=== PATIENT | female | born 1955 | race Caucasian/White ===

== ENCOUNTER 2020-05-18 07:26 | Outpatient (CLI) | payer MEDICARE, OTHER ==
[2020-05-18 14:15] LABS: Hemoglobin 14.1 g/dL (12.0-16.0); Mean Corpuscular HGB CONC 32.5 g/dL (32.0-36.0); Mean Corpuscular Hemoglobin 27.8 pg (27.0-31.0); Mean Corpuscular Volume 85.6 fL (78.0-98.0); Mean Platelet Volume 8.9 fL (7.4-10.4); Platelet Count 227 thou/uL (130-400); RBC Distribution Width 14.2 % (11.5-14.5); Red Blood Cell (RBC) Count 5.08 mill/uL (4.20-5.40)
[2020-05-18 14:20] LABS: INR-International Normal Ratio 0.9; PTT 26.4 sec (22.9-36.1); Prothrombin Time 12.2 sec (12.0-14.7)
[2020-05-19 11:55] LABS: SARS-CoV-2 MS2 Positive; SARS-CoV-2 N Gene Negative; SARS-CoV-2 S Gene Negative; SARS-CoV-2 by NAA Not Detected (NotDetected); SARS-CoV-2 orf1ab Negative
== END 2020-05-18 07:27 | disposition home or self-care (01) ==
LOC: LABBT 07:26
PROVIDERS: ATTEND Neurological Surgery
DX: Z01.812 Encounter for preprocedural laboratory examination (principal); Z20.828 Contact with and (suspected) exposure to other viral communicable diseases; G52.8 Disorders of other specified cranial nerves
CPT/HCPCS: 85027; 85610; 85730; U0003; 87635

== ENCOUNTER 2020-05-18 12:00 | Inpatient (IN) | payer MEDICARE, OTHER ==
[2020-05-19 14:17] VITALS: BMI 27.9
[2020-05-21] MEDS ORDERED: Heparin 1,000 UNITS/ML VIAL ONE (08:14)
[2020-05-21] MEDS ORDERED: Glycopyrrolate 0.2 MG/ML 5 ML SYRINGE ONE (10:53)
[2020-05-21] MEDS ORDERED: Rocuronium Bromide 10 MG/ML (10ML VIAL) ONE (10:53)
[2020-05-21] MEDS ORDERED: Dexamethasone 20 MG/5 ML VIAL ONE (10:53)
[2020-05-21] MEDS ORDERED: Ondansetron PF 4 MG/2 ML Vial ONE (10:53)
[2020-05-21] MEDS ORDERED: PROPOFOL 200 MG/20 ML VIAL ONE (10:53)
[2020-05-21] MEDS ORDERED: EPHEDRINE 25 MG/5 ML SYRINGE ONE (10:53)
[2020-05-21] MEDS ORDERED: PHENYLEPHRINE-NS 100 MCG/ML 10 ML SYRINGE ONE (10:53)
[2020-05-21] MEDS ORDERED: Lidocaine 1% PF 5 ML VIAL ONE (10:53)
[2020-05-21] MEDS ORDERED: Lidocaine 0.5%/Epinephrine 1:200,000 50 ml Vial ONE (13:12)
[2020-05-21] MEDS ORDERED: Fentanyl 100 MCG/2 ML VIAL ONE ×3 (13:54→17:47)
[2020-05-21] MEDS ORDERED: Gentamicin 80 MG/2 ML VIAL ONE (15:57)
[2020-05-21] MEDS ORDERED: Bacitracin Zinc Ointment 30 gm TUBE ONE (16:26)
[2020-05-21] MEDS ORDERED: diphenhydrAMINE 50 MG CAP PO PRN (16:37)
[2020-05-21] MEDS ORDERED: Promethazine 25 MG TAB PO PRN (16:37)
[2020-05-21] MEDS ORDERED: Promethazine HCl 25 MG/ML VIAL IM PRN (16:37)
[2020-05-21] MEDS ORDERED: Acetaminophen 325 MG TAB PO PRN (16:37)
[2020-05-21] MEDS ORDERED: Docusate 100 MG CAP PO PRN (16:37)
[2020-05-21] MEDS ORDERED: diphenhydrAMINE 50 MG/ML VIAL IVP PRN (16:37)
[2020-05-21] MEDS ORDERED: Acetaminophen 650 MG Suppository PR PRN (16:37)
[2020-05-21] MEDS ORDERED: Promethazine HCl 12.5 MG SUPP PR PRN (16:37)
[2020-05-21] MEDS ORDERED: Gabapentin 300 MG CAP PO PRN (16:41)
[2020-05-21] MEDS ORDERED: Ondansetron HCl/PF 4 MG/2 ML Vial IVP PRN (17:02)
[2020-05-21] MEDS ORDERED: Metoprolol Tartrate 5 MG/5 ML VIAL ONE (17:47)
[2020-05-21] MEDS: Morphine 2 MG/ML VIAL SLOW IVP PRN ×2 (20:08→22:08)
[2020-05-21] MEDS: Sodium Chloride 0.9% 1,000 ML IV SCH (20:09)
[2020-05-21] MEDS: CEFAZOLIN 2 GM in Premix Bag 1 BAG IVPB SCH (20:10)
[2020-05-21] MEDS: Ondansetron PF 4 MG/2 ML Vial IVP PRN (20:10)
[2020-05-21] MEDS: HYDROcodone/Acetaminophen 7.5/325 mg Tablet PO PRN (22:08)
--- NOTE | 2020-05-21 23:20 | OP ---
DATE OF PROCEDURE: 05/21/2020 CO-SURGEON: Jarek Chandler MD of Plastic Surgery. INDICATION: Treat infection, prevent neurological deterioration. PREOPERATIVE DIAGNOSIS: Prior cranioplasty, erosion of cranioplasty titanium mesh through the skin, exposure and colonization. POSTOPERATIVE DIAGNOSIS: Prior cranioplasty, erosion of cranioplasty titanium mesh through the skin, exposure and colonization. OPERATIVE PROCEDURE: Reopening cranial incision, debridement of wound, removal of cranioplasty and scalp advancement closure with office administrative assistant, intraoperative tissue expansion. PREOPERATIVE MEDICATION: Ancef 2 g IV. DRAINS NUMBER: Zero. DRAIN TYPE: None. DESCRIPTION OF PROCEDURE: The patient was brought to the operating room. General endotracheal anesthesia was induced. The patient was placed supine on the operating table with her left shoulder bumped and the head turned to the right and supported by a gel-filled donut-shaped headrest. Hair was removed with electric clippers. We could visualize the numerous incisions on the patient's scalp. We planned to open the curvilinear incision shaped as inverted horseshoe over the ear, because this best represented the edges of the prior cranioplasty. The erosion of mesh through this scalp was just 1 cm superior to that incision line. The scalp was sterilely prepped and draped. We opened the incision with a 10 blade knife. We carefully dissected down to the skull layer and then began elevating scar tissue in the layer of what it used to be the periosteum off the cranioplasty and off the [place] skull. We dissected circumferentially around the cranioplasty and identified 9 screws. These were removed. Three screws were stripped or filled with bone cement and were unable to be removed with a screwdriver. Those were drilled out with a high-speed drill. Once the edges of the cranioplasty were free, we began to peel it off the epidural space. Cranioplasty moved easily. 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 We left this attached to the brain. We dissected it off the edges of the bone inferiorly as it led towards the temporalis muscle. There seemed to be more tissue here. In case that one of her operations in the past involved a vascularized temporalis flap. We did not cut the attachments towards the temporalis muscle unless we devascularize what could be a vascular layer. We took multiple cultures both with swabs and we sent the screws themselves for culture as well as the entire cranioplasty flap. We irrigated with bacitracin irrigation. We then inspected the skin hole created by the titanium mesh. This was about 1 cm outside and superior to the incision we opened. We elected to mobilize the scalp intraoperatively to get it to close and to incorporate the skin defect into the attention provided by closing sutures, so that had a chance to heal in the coming weeks to months. A 30 mL Warren catheter was brought in the field, this was tunneled under the scalp and then inflated with 40 mL of fluid to allow for some intraoperative tissue expansion. This was done as we debrided more granulation tissue from around the wound. We then deflated the catheter, removed it and found that the scalp had some more give. A [place] 3 dissector was instrumental in dissecting past the horizon of the skull under the scalp as well as a [place] 1 dissector around the more proximal edges. This dissection and the tissue expansion allowed us to close the wound with vertical mattress sutures under very little tension. Prior to final closure, a paste of the vancomycin, gentamicin was left in the skull defect and a closure was completed with the planned vertical mattress sutures. Sterile dressings were applied. This was a clean case, no contamination. Job ID: [id number]
--- NOTE | 2020-05-22 00:33 | OP ---
DATE OF PROCEDURE: 05/21/2020 PREOPERATIVE DIAGNOSIS: Infected cranioplasty. POSTOPERATIVE DIAGNOSIS: Infected cranioplasty. PROCEDURES: 1. Removal of infected cranioplasty by Dr. Young. 2. Complex closure of the scalp (20 cm) (49593, [id number] x3). DESCRIPTION OF PROCEDURE: Following induction of adequate anesthesia, the patient was prepped and draped in the usual sterile fashion in the lateral position. Please see Dr. Young's note for scalp incision as well as elevation of the scalp in order to perform the cranioplasty hardware removal. Due to retraction of the temporoparietal scalp flap, primary closure could not be reachieved without undue tension. This was exacerbated by a small open area of the scalp from the hardware. In order to achieve a proper tension on the closure, the scalp was further elevated medially as well as anteriorly and posteriorly. Medially, the elevation was approximately 8 cm. This was done in a subperiosteal plane. Intraoperative tissue expansion was then performed with the Warren catheter balloons being expanded allowing the scalp to stretch. This mobilization and stretching allowed for the closure to be performed. This was then closed using 2-0 nylon suture followed by 5-0 fast gut suture for the skin edges. Vancomycin and gentamicin paste were placed underneath the flap prior to closure and copious irrigation. The patient tolerated the procedure well. Please see Dr. Young's note for further detail. Job ID: [id number]
[2020-05-22] MEDS: CEFAZOLIN 2 GM in Premix Bag 1 BAG IVPB SCH ×3 (04:32→21:17)
[2020-05-22 05:34] LABS: #Lymphocytes 0.9 thou/uL (1.20-3.40); #Monocytes 0.5 thou/uL (0.11-0.59); #Neutrophils 7.5 thou/uL (1.40-6.50); %Basophils 0.2 % (0.0-1.0); %Eosinophils 0.1 % (0.0-10.0); %Lymphocytes 10.1 % (21.0-51.0); %Monocytes 5.1 % (0.0-10.0); %Neutrophils 84.4 % (42.0-75.0); Hemoglobin 13.3 g/dL (12.0-16.0); Mean Corpuscular HGB CONC 32.2 g/dL (32.0-36.0); Mean Corpuscular Hemoglobin 27.4 pg (27.0-31.0); Mean Corpuscular Volume 85.2 fL (78.0-98.0); Mean Platelet Volume 9.3 fL (7.4-10.4); Platelet Count 210 thou/uL (130-400); RBC Distribution Width 14.1 % (11.5-14.5); Red Blood Cell (RBC) Count 4.86 mill/uL (4.20-5.40); White Blood Cell (WBC) Count 8.8 thou/uL (4.8-10.8)
[2020-05-22] MEDS: Morphine 2 MG/ML VIAL SLOW IVP PRN (06:08)
[2020-05-22] MEDS: HYDROcodone/Acetaminophen 7.5/325 mg Tablet PO PRN ×2 (06:08→21:20)
[2020-05-22] MEDS: Sodium Chloride 0.9% 1,000 ML IV SCH ×2 (06:17→18:13)
[2020-05-22] MEDS: Ondansetron PF 4 MG/2 ML Vial IVP PRN (07:58)
[2020-05-22] MEDS: Famotidine 20 MG TAB PO SCH (07:58)
--- NOTE | 2020-05-22 11:27 | PRG ---
DATE OF SERVICE: Ms. Walker is doing well neurologically and clinically postop day #1 following removal of bone flap. We will get her helmet, antibiotics have been finalized and then she can go home. Job ID: [id number]
[2020-05-22] MEDS: Topiramate 25 MG TAB PO PRN (15:45)
[2020-05-22] MEDS ORDERED: Vancomycin HCl 1.25 GM in Sodium Chloride 0.9% 250 ML 250 ML IVPB SCH (17:15)
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
[2020-05-22 17:48] LABS: ALT (SGPT) 36 U/L (8-55); AST (SGOT) 43 U/L (5-34); Albumin 3.6 g/dL (3.4-4.8); Alkaline Phosphatase 82 U/L (40-110); Anion Gap 11 mmol/L (10-20); BUN (Urea Nitrogen) 18 mg/dL (9.8-20.1); Bilirubin, Total 0.2 mg/dL (0.2-1.2); Calc. Creatinine Clearance 88 mL/min (70-130); Calcium 8.5 mg/dL (7.8-10.44); Carbon Dioxide 26 mmol/L (23-31); Chloride 108 mmol/L (98-107); Estimated GFR-MDRD 74; Globulin 2.3 g/dL (2.4-3.5); Glucose 120 mg/dL (80-115); Potassium 3.5 mmol/L (3.5-5.1); Protein, Total 5.9 g/dL (6.0-8.3); Sodium 141 mmol/L (136-145)
[2020-05-22] MEDS: Vancomycin HCl 1.25 GM in Sodium Chloride 0.9% 250 ML 250 ML IVPB SCH (18:01)
[2020-05-22 18:07] LABS: Hep C IgG Ab Non-Reactive (NonReactive); Hep C Index 0.25 S/CO (0-0.79)
[2020-05-22] MEDS ORDERED: Vancomycin HCl 1.25 GM in Sodium Chloride 0.9% 250 ML 300 ML IVPB SCH (21:00)
[2020-05-22] MEDS: Cefepime 2 GM in Sodium Chloride 0.9% 100 ML IVPB SCH (21:17)
--- NOTE | 2020-05-22 21:40 | PRG ---
DATE OF SERVICE: 05/22/2020 SUBJECTIVE: Ms. Walker is a very pleasant 64-year-old female, who is postoperative day #1 from removal of bone flap. She endorses a headache rated as 6/10 and some mild nausea, but overall states that she is doing well after her surgery. She does note some new numbness and tingling in the 1st through 3rd fingers of the left hand. She is moving all extremities without difficulty. She has not yet ambulated because she wishes to obtain a helmet prior to doing so. She denies any changes in vision or speech. Overall, she is very pleasant and in good spirits. She has remained afebrile throughout her hospital stay. Vital signs have been stable. Lowest blood pressure overnight was 106/55. White blood cell 8.8. Sodium 141. All other labs reviewed and there were no concerning abnormalities. The patient is awake, alert, and appropriate. Pupils are 3 mm; equal, round, and reactive to light. Extraocular movements are intact. Cranial nerves 2 through 12 are grossly intact. Neck is supple and patient demonstrates a good range of motion of the head. She demonstrates excellent strength throughout her upper and lower extremity myotomes bilaterally. Aside from subjective decreased sensation in the left 1st through 3rd fingers, the patient's sensation to light touch is intact throughout. Overall, the patient is neurologically stable. PLAN: A consult has been placed for [facility] to fit the patient for a helmet. Once obtained, she can begin to mobilize. When patient was seen this afternoon, she remained awaiting to be seen by Infectious Disease for finalization of antibiotic management. She will be stable for discharge home when she has been seen by Dr. Flowers. Please call for any neurologic changes or other concerns. Job ID: [id number]
[2020-05-23] MEDS: CEFAZOLIN 2 GM in Premix Bag 1 BAG IVPB SCH ×3 (05:49→20:19)
[2020-05-23] MEDS: Vancomycin HCl 1.25 GM in Sodium Chloride 0.9% 250 ML 250 ML IVPB SCH ×2 (05:49→17:20)
[2020-05-23] MEDS: HYDROcodone/Acetaminophen 7.5/325 mg Tablet PO PRN ×2 (05:58→17:19)
--- NOTE | 2020-05-23 08:57 | EKG ---
Test Reason : PREOP Blood Pressure : / mmHG Vent. Rate : 052 BPM Atrial Rate : 052 BPM P-R Int : 142 ms QRS Dur : 140 ms QT Int : 476 ms P-R-T Axes : 063 085 024 degrees QTc Int : 442 ms Sinus bradycardia Right bundle branch block Abnormal ECG No previous ECGs available Confirmed by DR. Wilfrido JACK ([id number]) on 05/23/2020 8:57:16 AM Referred By: ADAM Confirmed By:DR. Wilfrido JACK
[2020-05-23] MEDS: Sodium Chloride 0.9% 1,000 ML IV SCH ×2 (09:02→17:20)
[2020-05-23] MEDS: Famotidine 20 MG TAB PO SCH (09:03)
[2020-05-23] MEDS: Cefepime 2 GM in Sodium Chloride 0.9% 100 ML IVPB SCH ×2 (09:04→21:22)
[2020-05-23] MEDS: Topiramate 25 MG TAB PO PRN (12:49)
[2020-05-24 05:13] LABS: Vancomycin, Trough 15.6 ug/mL
[2020-05-24] MEDS: CEFAZOLIN 2 GM in Premix Bag 1 BAG IVPB SCH ×3 (05:15→20:11)
[2020-05-24] MEDS: HYDROcodone/Acetaminophen 7.5/325 mg Tablet PO PRN ×3 (05:18→17:51)
[2020-05-24] MEDS: Vancomycin HCl 1.25 GM in Sodium Chloride 0.9% 250 ML 250 ML IVPB SCH (05:49)
[2020-05-24] MEDS: Famotidine 20 MG TAB PO SCH (08:14)
[2020-05-24] MEDS: Cefepime 2 GM in Sodium Chloride 0.9% 100 ML IVPB SCH ×2 (08:41→21:44)
[2020-05-24] MEDS: Sodium Chloride 0.9% 1,000 ML IV SCH (13:00)
[2020-05-24] MEDS ORDERED: Iopamidol 300 61% 50 ML VIAL FS ONE (14:03)
--- NOTE | 2020-05-24 15:03 | SPC ---
Left upper extremity PICC placement sonographic guided HISTORY: Infection. Need for long-term antibiotics. FINDINGS: After explaining the procedure and answering all questions, left upper extremity was preppe d and draped in usual sterile fashion. Sterile technique, buffered local anesthesia, sonographic guidance, and a 22-gauge needle were used t o carefully access the left brachial vein. Guidewire would not pass beyond the left subclavian vein. Small amount of contrast was injected, showing occlusion of the left subclavian vein immediately infe rior to the medial margin of the clavicular metallic plate. There was collateralization of the flow into the neck. With a Koducoenstein catheter, the level of the occlusion was carefully probed for patenc y which was unable to be found. Access to the left brachial vein was eventually removed. Attention was then turned to the right arm. Sterile technique, buffered local anesthesia, sonographic guidance, and a 22-gauge needle were used to carefully access the right brachial vein. Standard technique was used to place the tip of a 5 [place] single lumen PICC so that the tip lies at the level of the cavoatrial junction. Catheter was flushed and secured externally. Patient tolerated the procedure well and was returned in unchanged condition. IMPRESSION : Right upper extremity PICC is ready for use. 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
[2020-05-24] MEDS: Vancomycin 1.5 GRAM/300 ML BAG 1.5 GM in Premix Bag 1 BAG IVPB SCH (17:44)
[2020-05-25] MEDS: Sodium Chloride 0.9% 1,000 ML IV SCH ×2 (01:00→13:47)
[2020-05-25] MEDS: CEFAZOLIN 2 GM in Premix Bag 1 BAG IVPB SCH ×2 (05:32→12:34)
[2020-05-25] MEDS: Vancomycin 1.5 GRAM/300 ML BAG 1.5 GM in Premix Bag 1 BAG IVPB SCH (06:18)
--- NOTE | 2020-05-25 06:53 | PRG ---
DATE OF SERVICE: 05/25/2020 I saw Prieto Walker in her room this morning. She is 4 days out from removal of cranioplasty and a PICC line was placed yesterday. Overnight, I do not see any fevers recorded among the vital signs. Neurologically, she is well. Ms. Walker is ready for discharge. Once home antibiotics are arranged, she can leave the hospital. Dr. Chandler's office will remove the sutures in 3 to 4 weeks. We will order CT scan with fine cuts to plan 3D printed cranioplasty and at the completion of antibiotic therapy, we will wait another month to six weeks to make sure that no infection returns before planning a return to the operating room. Job ID: [id number] MTDD
[2020-05-25] MEDS: HYDROcodone/Acetaminophen 7.5/325 mg Tablet PO PRN ×2 (06:59→17:20)
[2020-05-25] MEDS: Famotidine 20 MG TAB PO SCH (07:53)
[2020-05-25] MEDS: Cefepime 2 GM in Sodium Chloride 0.9% 100 ML IVPB SCH ×2 (09:28→17:06)
[2020-05-25 16:14] VITALS: BP 125/73; TEMP 98.6
[2020-05-25] MEDS ORDERED: Cefepime 2 GM in Sodium Chloride 0.9% 100 ML IVPB SCH (17:45)
[2020-05-26] MEDS ORDERED: Cefepime 2 GM in Sodium Chloride 0.9% 100 ML IVPB SCH (06:00)
[2020-05-26 13:39] LABS: Fungus Stain Final report (.)
--- NOTE | 2020-05-26 15:26 | DIS ---
DATE OF ADMISSION: 05/21/2020 DATE OF DISCHARGE: 05/25/2020 HOSPITAL COURSE: Ms. Walker is a 64-year-old female, who had a prior cranioplasty with erosion of the titanium mesh through the skin, exposure and colonization. The patient was brought to the operating room with co-surgeon, Dr. Chandler and reopen the cranial incision and debrided the wound and removal of the cranioplasty. The scalp advancement closure was done by plastic surgeon, Dr. Chandler. Following her surgery, she was transitioned to the med/surg floor, where her pain was well controlled with p.o. medications. She has been tolerating a regular diet and is voiding appropriately. She saw Infectious Disease and was placed on broad- spectrum antibiotic. She is otherwise doing well and ambulating easily in the hallways. She feels that she is ready to go home today. On exam, she is awake and alert, in no acute distress. She has free active range of motion of all extremities. No focal motor weakness. No reflex asymmetry. Her incision is clean, dry, and intact. We will plan to dismiss the patient to home today. I have discussed home care precautions with her. CONDITION ON DISCHARGE: The patient had no emergencies. Condition was stable for discharge. MEDICATIONS: Home going medications were reviewed. FOLLOWUP: Follow up arrangements made by our weatherization coordinator in the clinic and call to the patient. ACTIVITIES: Restrictions were reviewed in person. Wound care showers are acceptable. The patient should pat the incision dry, but not submerge under the surface of the body of water for 2 months. Job ID: [id number] [facility]
--- NOTE | 2020-05-27 08:08 | PQF ---
CLINICAL DOCUMENTATION CLARIFICATION FORM: Dear : Guy Young Date / Time: 05/27/20 0807 Please exercise your independent, professional judgment in responding to the clarification form. Clinical indicators are provided on the bottom of this form for your review Please check appropriate box(es): [ ] Excisional Debridement: Depth / layer: (deepest layer of debridement): [ ] Scalp Bone [ ] Brain tissue [ ] Non-excisional Debridement: Depth / layer: (deepest layer of debridement): [ ] Scalp Bone [ ] Brain [ ] Other procedure diagnosis [ ] Unable to determine Physician Signature: Date/Time: For continuity of documentation, please document condition throughout progress notes and discharge summary. Thank You. To be completed by CDI/Coding staff for physician review: Present Clinical Indicators - Signs / Symptoms / Labs Results and Location in Medical Record [X] Dissected circumfirentially aound the cranioplasty and identified 9 screws. There were removed. Cranioplasty moved easily Operative report Dr Young 05/21 [X] A 30 ml Folet catheter was brouhgt in the field this was tunneled under the scalp and then inflated with 40 ml gluid to allow for some intraioperative tissue expansion Operative report Dr Young 05/21 [X] This was done was we debrided more granulation tissue from the around wound Operative report Dr Young 05/21 Present Risk Factors Results and Location in Medical Record [X] Erosion of Cranioplasty titanium mesh through the skin Operative report Dr Young 05/21 [X] Infected Cranioplasty Operative report Dr Willsi Present Treatments Results and Location in Medical Record [X] Reopening cranial incision Operative report Dr Young 05/21 [X] Debridement of wound and removal of cranioplasty and scalp advancement closure Operative report Dr Young 05/21 CDS/Broadband Installer Signature: She Ash Phone #: ext [phone] Date/Time: 05/27/2020 0807 This is a permanent part of the Medical Record [facility]
[2020-06-21 15:14] LABS: Fungus Culture Final report (.)
== END 2020-05-25 19:17 | disposition home health service (06) | DRG 908 ==
LOC: SURG A 05-21 10:54 → EDSTATUS 05-21 12:00 → SURG A 05-21 18:18
PROVIDERS: ADMIT Neurological Surgery; ATTEND Neurological Surgery
PROC: 0NP00JZ Removal of Synthetic Substitute from Skull, Open Approach (ICD-10-PCS; principal; 2020-05-21)
PROC: 02HV33Z Insertion of Infusion Device into Superior Vena Cava, Percutaneous Approach (ICD-10-PCS; 2020-05-24)
PROC: B548ZZA Ultrasonography of Superior Vena Cava, Guidance (ICD-10-PCS; 2020-05-24)
DX: T85.79XA Infection and inflammatory reaction due to other internal prosthetic devices, implants and grafts, initial encounter (principal); I82.B12 Acute embolism and thrombosis of left subclavian vein; T83.718A Erosion of other implanted mesh to organ or tissue, initial encounter; F32.9 Major depressive disorder, single episode, unspecified; G62.9 Polyneuropathy, unspecified; Y83.1 Surgical operation with implant of artificial internal device as the cause of abnormal reaction of the patient, or of later complication, without mention of misadventure at the time of the procedure; Z87.891 Personal history of nicotine dependence; Z79.899 Other long term (current) drug therapy; Z01.812 Encounter for preprocedural laboratory examination; Z20.828 Contact with and (suspected) exposure to other viral communicable diseases; G52.8 Disorders of other specified cranial nerves
CPT/HCPCS: 36415; 36416; 36569; 80053; 80202; 85025; 85027; 85610; 85730; 86803; 87070; 87077; 87102; 87116; 87186; 87205; 87206; 87635; 93005; 93010; C1751; J0690; J0692; J1100; J1580; J1644; J2001; J2270; J2405; J2704; J3010; J3370; J3490; J7050; Q0169; Q9967; U0003

== ENCOUNTER 2020-08-30 05:34 | Day surgery (SDC) | payer MEDICARE ==
[2020-08-26 14:46] VITALS: BMI 27.8
[2020-08-30] MEDS ORDERED: Heparin 5,000 UNITS/ML VIAL ONE (06:12)
[2020-08-30] MEDS ORDERED: Bupivacaine 0.25% HCL 30 ML VIAL ONE ×2 (06:41)
[2020-08-30] MEDS ORDERED: EPINEPHrine 1 MG/ML AMP ONE (06:41)
[2020-08-30] MEDS ORDERED: Gentamicin 80 MG/2 ML VIAL ONE (06:41)
[2020-08-30] MEDS ORDERED: Fentanyl 250 MCG/5 ML VIAL ONE (06:54)
[2020-08-30] MEDS ORDERED: Bacitracin Zinc Ointment 30 gm TUBE ONE (08:17)
[2020-08-30] MEDS ORDERED: PROPOFOL 200 MG/20 ML VIAL ONE (09:15)
[2020-08-30] MEDS ORDERED: PHENYLEPHRINE-NS 100 MCG/ML 10 ML SYRINGE ONE (09:15)
[2020-08-30] MEDS ORDERED: Ondansetron PF 4 MG/2 ML Vial ONE (09:15)
[2020-08-30] MEDS ORDERED: Rocuronium Bromide 10 MG/ML (10ML VIAL) ONE (09:15)
[2020-08-30] MEDS ORDERED: ePHEDrine 50 MG/ML VIAL ONE (09:15)
[2020-08-30] MEDS ORDERED: Glycopyrrolate 0.2 MG/ML 5 ML SYRINGE ONE (09:15)
[2020-08-30] MEDS ORDERED: Lidocaine 1% PF 5 ML VIAL ONE (09:15)
[2020-08-30] MEDS ORDERED: Dexamethasone 20 MG/5 ML VIAL ONE (09:15)
--- NOTE | 2020-08-31 08:48 | OP ---
DATE OF PROCEDURE: 08/30/2020 PREOPERATIVE DIAGNOSIS: Status post infected cranioplasty. POSTOPERATIVE DIAGNOSIS: Status post infected cranioplasty. PROCEDURE PERFORMED: Placement of scalp tissue government instructor. OPERATIVE FINDINGS: Tissue government instructor is a [place] smooth elliptical tissue government instructor with remote injection dome, reference #[id number] and serial #[id number] filled to a volume of 40 mL. INDICATIONS FOR PROCEDURE: The patient is a 65-year-old female status post multiple failed cranioplasties. After removal of her last infected cranioplasty, the patient was noted to have extremely attenuated skin at the incisions. They were also very tight. In an effort to get more and better skin for an eventual cranioplasty closure, tissue expansion was planned. DESCRIPTION OF PROCEDURE: Following induction of adequate anesthesia, the patient was prepped and draped in usual sterile fashion in supine position. A scalp incision perpendicular to the axis of the government instructor was made. Dissection was carried sharply down to the calvarium. With all the patient's prior surgeries, there was no subgaleal plane remaining. A subperiosteal pocket was created going up to and abutting the prior left judaism defect. The pocket was then irrigated with hypochlorite solution, which was allowed to sit for 3 minutes, followed by antibiotic solution and dilute Betadine solution. The above government instructor was placed with the port being placed anteriorly. The incision was closed with 3-0 Monocryl suture followed by 3-0 Prolene suture and 5-0 fast gut suture. The remote port was accessed and the government instructor was filled to 40 mL with normal saline. The government instructor stayed in its designed spot. The patient tolerated the procedure well. Job ID: [id number]
== END 2020-08-30 09:52 | disposition home or self-care (01) ==
LOC: SDC 05:34
PROVIDERS: ATTEND Plastic Surgery
PROC: 0JH Subcutaneous Tissue and Fascia, Insertion (ICD-10-PCS; principal; 2020-08-30)
DX: T86.832 Bone graft infection (principal); Z79.899 Other long term (current) drug therapy
CPT/HCPCS: 11960; C1713; J0171; J0690; J1100; J1580; J1644; J2405; J2704; J3010; J3370; J3490; S0020

== ENCOUNTER 2021-02-16 12:31 | Outpatient (CLI) | payer MEDICARE | END 2021-02-16 12:32 | disposition home or self-care (01) | LOC: CT 12:31 | PROVIDERS: ATTEND Neurological Surgery | DX: S09.90XA Unspecified injury of head, initial encounter (principal); G93.89 Other specified disorders of brain; Z98.890 Other specified postprocedural states | CPT/HCPCS: 70450 ==

== ENCOUNTER 2021-06-08 13:15 | Outpatient (CLI) | payer MEDICARE ==
[2021-06-08 14:49] LABS: Mean Corpuscular HGB CONC 30.9 g/dL (32.0-36.0); Mean Corpuscular Volume 84.2 fl (81.6-98.3); Mean Platelet Volume 11.1 fl (7.4-10.4); Platelet Count 248 10x3/uL (150-450); RBC Distribution Width 14.7 % (11.5-14.5); Red Blood Cell (RBC) Count 5.38 10x6/uL (3.90-5.03); White Blood Cell (WBC) Count 8.3 10x3/uL (3.5-10.5)
[2021-06-08 14:54] LABS: INR-International Normal Ratio 0.9; PTT 25.6 sec (22.0-33.0); Prothrombin Time 10.4 sec (9.5-12.1)
[2021-06-08 23:49] LABS: SARS-CoV-2 PCR by NAA Not Detected (NotDetected)
== END 2021-06-08 13:16 | disposition home or self-care (01) ==
LOC: LABBT 13:15
PROVIDERS: ATTEND Neurological Surgery
DX: Z01.812 Encounter for preprocedural laboratory examination (principal); M95.2 Other acquired deformity of head; Z20.822 Contact with and (suspected) exposure to COVID-19
CPT/HCPCS: 85027; 85610; 85652; 85730; 86140; U0003; U0005

== ENCOUNTER 2021-06-08 13:30 | Inpatient (IN) | payer MEDICARE ==
[2021-06-10 12:06] VITALS: BMI 28.3
[2021-06-13] MEDS ORDERED: Neomycin-Polymyxin 1 ML AMP ONE (06:10)
[2021-06-13] MEDS ORDERED: Lidocaine 0.5%/Epinephrine 1:200,000 50 ml Vial ONE (06:10)
[2021-06-13] MEDS ORDERED: Thrombin 5000 UNITS/5 ML VIAL ONE (06:10)
[2021-06-13] MEDS ORDERED: Heparin 5,000 UNITS/ML VIAL ONE (06:13)
[2021-06-13] MEDS ORDERED: ceFAZolin 2 GM/DEX 5% 100 ML BAG ONE (06:13)
[2021-06-13] MEDS ORDERED: Fentanyl 100 MCG/2 ML VIAL ONE (06:14)
[2021-06-13] MEDS ORDERED: PROPOFOL 200 MG/20 ML VIAL ONE (07:00)
[2021-06-13] MEDS ORDERED: Lidocaine 1% PF 5 ML VIAL ONE (07:00)
[2021-06-13] MEDS ORDERED: ePHEDrine 50 MG/ML VIAL ONE (07:00)
[2021-06-13] MEDS ORDERED: Dexamethasone 20 MG/5 ML VIAL ONE (07:00)
[2021-06-13] MEDS ORDERED: Glycopyrrolate 0.2 MG/ML 5 ML SYRINGE ONE (07:00)
[2021-06-13] MEDS ORDERED: Ondansetron PF 4 MG/2 ML Vial ONE (07:00)
[2021-06-13] MEDS ORDERED: Rocuronium Bromide 10 MG/ML (10ML VIAL) ONE (07:00)
[2021-06-13] MEDS ORDERED: PHENYLEPHRINE-NS 100 MCG/ML 10 ML SYRINGE ONE ×2 (07:00→09:50)
[2021-06-13] MEDS ORDERED: Morphine Sulfate 2 MG/ML SYRINGE SLOW IVP PRN (09:05)
[2021-06-13] MEDS ORDERED: Ondansetron HCl/PF 4 MG/2 ML Vial IVP PRN (09:05)
[2021-06-13] MEDS ORDERED: Promethazine HCl 25 MG/ML VIAL IVPB PRN (09:05)
[2021-06-13] MEDS ORDERED: Promethazine HCl 25 MG/ML VIAL IM PRN (09:05)
[2021-06-13] MEDS ORDERED: Acetaminophen 325 MG TAB PO PRN (09:50)
[2021-06-13] MEDS ORDERED: diphenhydrAMINE 50 MG/ML VIAL IVP PRN (09:50)
[2021-06-13] MEDS ORDERED: Mag-Al 1200 mg/1200 mg/30 ML UDCUP PO PRN (09:50)
[2021-06-13] MEDS ORDERED: Milk Of Magnesia 30 ML UDCUP PO PRN (09:50)
[2021-06-13] MEDS ORDERED: Promethazine 25 MG TAB PO PRN (09:50)
[2021-06-13] MEDS ORDERED: Ondansetron PF 4 MG/2 ML Vial IVP PRN (09:50)
[2021-06-13] MEDS ORDERED: Ergocalciferol 1.25 MG(50,000 UNITS) CAP PO SCH (10:00)
[2021-06-13] MEDS ORDERED: CEFAZOLIN 2 GM in Premix Bag 1 BAG IVPB SCH (10:00)
[2021-06-13] MEDS ORDERED: Morphine 4 MG/ML VIAL SLOW IVP PRN (11:43)
[2021-06-13] MEDS ORDERED: Topiramate 25 MG TAB PO PRN (12:10)
[2021-06-13] MEDS: Sodium Chloride 0.9% 1,000 ML IV SCH (12:17)
[2021-06-13] MEDS: Acetaminophen/Codeine 30-300mg Tablet PO PRN ×2 (12:46→23:04)
[2021-06-13] MEDS: tiZANidine HCl 4 MG TAB PO SCH ×2 (15:35→20:18)
[2021-06-13] MEDS: VANCOMYCIN 1.25 GM/250 ML BAG 1.25 GM in Premix Bag 1 BAG IVPB SCH (15:35)
[2021-06-13] MEDS: HYDROcodone/Acetaminophen 7.5/325 mg Tablet PO PRN (17:21)
[2021-06-13] MEDS ORDERED: Gabapentin 300 MG CAP PO SCH (21:00)
[2021-06-14] MEDS: VANCOMYCIN 1.25 GM/250 ML BAG 1.25 GM in Premix Bag 1 BAG IVPB SCH (02:18)
[2021-06-14] MEDS: Sodium Chloride 0.9% 1,000 ML IV SCH (04:16)
[2021-06-14 07:33] VITALS: BP 122/58; TEMP 97.9
[2021-06-14] MEDS: tiZANidine HCl 4 MG TAB PO SCH (08:29)
[2021-06-14] MEDS ORDERED: Meloxicam 15 MG TAB PO SCH (09:00)
[2021-06-14] MEDS ORDERED: Famotidine 20 MG TAB PO SCH (09:00)
[2021-06-14] MEDS: HYDROcodone/Acetaminophen 7.5/325 mg Tablet PO PRN (09:27)
== END 2021-06-14 10:06 | disposition home or self-care (01) | DRG 983 ==
LOC: SURG A 06-13 05:55 → SURG B 06-13 11:11
PROVIDERS: ADMIT Neurological Surgery; ATTEND Neurological Surgery
PROC: 0NU Head and Facial Bones, Supplement (ICD-10-PCS; principal; 2021-06-13)
PROC: 0JP Subcutaneous Tissue and Fascia, Removal (ICD-10-PCS; 2021-06-13)
DX: Z42.8 Encounter for other plastic and reconstructive surgery following medical procedure or healed injury (principal); G89.29 Other chronic pain; Z90.710 Acquired absence of both cervix and uterus; Z80.9 Family history of malignant neoplasm, unspecified; Z82.49 Family history of ischemic heart disease and other diseases of the circulatory system; Z87.11 Personal history of peptic ulcer disease; Z87.891 Personal history of nicotine dependence; Z79.899 Other long term (current) drug therapy; Z79.1 Long term (current) use of non-steroidal anti-inflammatories (NSAID)
CPT/HCPCS: C1713; J1100; J1644; J2001; J2405; J2704; J3010; J3370; J3490; J7050

== ENCOUNTER 2022-04-20 07:57 | Outpatient (CLI) | payer OTHER | END 2022-04-20 07:58 | disposition home or self-care (01) | LOC: SCSMRI 07:57 | PROVIDERS: ATTEND Nurse Practitioner Family | DX: M51.16 Intervertebral disc disorders with radiculopathy, lumbar region (principal); G57.71 Causalgia of right lower limb; Z87.39 Personal history of other diseases of the musculoskeletal system and connective tissue; M43.16 Spondylolisthesis, lumbar region; M48.061 Spinal stenosis, lumbar region without neurogenic claudication; Z98.890 Other specified postprocedural states | CPT/HCPCS: 70250; 72148 ==

== ENCOUNTER 2022-05-31 09:56 | Outpatient (CLI) | payer OTHER | END 2022-05-31 09:57 | disposition home or self-care (01) | LOC: TBSIIMAG 09:56 | PROVIDERS: ATTEND Neurological Surgery | DX: M47.26 Other spondylosis with radiculopathy, lumbar region (principal); M51.16 Intervertebral disc disorders with radiculopathy, lumbar region; M43.16 Spondylolisthesis, lumbar region | CPT/HCPCS: 72120 ==

== ENCOUNTER 2022-10-14 00:51 | Observation (INO) | payer OTHER ==
[2022-10-14 01:16] LABS: #Eosinphils 0.1 thou/uL (0.0-0.7); #Lymphocytes 1.5 thou/uL (1.20-3.40); #Monocytes 0.5 thou/uL (0.11-0.59); #Neutrophils 9.5 thou/uL (1.40-6.50); %Basophils 0.3 % (0.0-1.0); %Eosinophils 0.6 % (0.0-10.0); %Lymphocytes 12.7 % (21.0-51.0); %Monocytes 4.1 % (0.0-10.0); %Neutrophils 82.3 % (42.0-75.0); Hemoglobin 13.1 g/dL (12.0-16.0); Mean Corpuscular HGB CONC 33.1 g/dL (32.0-36.0); Mean Corpuscular Hemoglobin 28.1 pg (27.0-31.0); Mean Platelet Volume 8.6 fL (7.4-10.4); Platelet Count 182 10x3/uL (130-400); RBC Distribution Width 13.7 % (11.5-14.5); Red Blood Cell (RBC) Count 4.65 mill/uL (4.20-5.40); White Blood Cell (WBC) Count 11.5 10x3/uL (4.8-10.8)
[2022-10-14 01:36] LABS: ALT (SGPT) 10 U/L (8-55); AST (SGOT) 15 U/L (5-34); Albumin 3.3 g/dL (3.4-4.8); Alkaline Phosphatase 73 U/L (40-110); Anion Gap 15 mmol/L (10-20); BUN (Urea Nitrogen) 28 mg/dL (9.8-20.1); Bilirubin, Total 0.2 mg/dL (0.2-1.2); Calc. Creatinine Clearance 0 mL/min (70-130); Calcium 7.4 mg/dL (7.8-10.44); Carbon Dioxide 17 mmol/L (23-31); Chloride 115 mmol/L (98-107); Estimated GFR 67; Globulin 2.2 g/dL (2.4-3.5); Glucose 98 mg/dL (80-115); Potassium 3.5 mmol/L (3.5-5.1); Protein, Total 5.5 g/dL (5.8-8.1); Sodium 143 mmol/L (136-145)
[2022-10-14 01:50] LABS: Bilirubin Negative (Negative); Blood, Urine Negative (Negative); Clarity Clear (Clear); Glucose, Urine (Dipstick) Normal (Negative); Ketone, Urine Negative (Negative); Leukocyte Negative Leu/uL (Negative); Nitrite Negative (Negative); Protein, Urine (Dipstick) 20 mg/dL (Neg-Trace); Urobilinogen Normal mg/dL (Less than 2)
[2022-10-14] MEDS ORDERED: Vancomycin 1 GM/200 ML (FROZEN) BAG ONE (02:06)
[2022-10-14] MEDS ORDERED: cefTRIAXone\\ROCEPHIN 1 GM VIAL ONE (02:06)
[2022-10-14] MEDS: Sodium Chloride 0.9% 1,000 ML IV SCH ×2 (04:50→13:36)
[2022-10-14 04:59] VITALS: BMI 30.2
[2022-10-14] MEDS ORDERED: Non-Formulary Item 1 EACH (Topiramate [Topiramate] 50 MG Tablet) PO PRN (08:22)
[2022-10-14] MEDS ORDERED: Topiramate 25 MG TAB PO PRN (08:32)
[2022-10-14] MEDS ORDERED: Diltiazem HCl SR 60 mg Capsule PO SCH (09:00)
[2022-10-14] MEDS ORDERED: Sertraline 100 MG TAB PO SCH (09:00)
[2022-10-14] MEDS ORDERED: Famotidine 20 MG TAB PO SCH (09:00)
[2022-10-14] MEDS ORDERED: Meloxicam 15 MG TAB PO SCH (09:00)
[2022-10-14] MEDS ORDERED: Non-Formulary Item 1 EACH (Diltiazem Hcl [Diltiazem 12hr Er] 120 MG Cap.Er.12h) PO SCH (09:00)
[2022-10-14 16:21] VITALS: TEMP 98.3
[2022-10-14 17:28] VITALS: BP 118/57
[2022-10-14] MEDS ORDERED: Atorvastatin Calcium 10 MG TAB PO SCH (21:00)
[2022-10-14] MEDS ORDERED: Gabapentin 300 MG CAP PO SCH (21:00)
== END 2022-10-14 18:20 | disposition home or self-care (01) ==
LOC: ERS 00:51 → 2SW 02:44
PROVIDERS: ADMIT Internal Medicine; ATTEND Internal Medicine
DX: R55 Syncope and collapse (principal); I48.91 Unspecified atrial fibrillation; R01.1 Cardiac murmur, unspecified; D72.829 Elevated white blood cell count, unspecified; I35.0 Nonrheumatic aortic (valve) stenosis; Z87.820 Personal history of traumatic brain injury; Z87.891 Personal history of nicotine dependence; Z79.1 Long term (current) use of non-steroidal anti-inflammatories (NSAID); Z79.899 Other long term (current) drug therapy; Z95.810 Presence of automatic (implantable) cardiac defibrillator; Z20.822 Contact with and (suspected) exposure to COVID-19
CPT/HCPCS: 51701; 70450; 71045; 80053; 81003; 83605; 83880; 84484; 85025; 87040; 87086; 93005; 93306; 96361; 96365; 96367; 99285; G0378 ×2; J3370; U0003; U0005; 36415; J0696; J7050

== ENCOUNTER 2022-11-20 14:36 | Outpatient (CLI) | payer OTHER ==
[2022-11-20 15:53] LABS: Hemoglobin 14.2 g/dL (12.0-15.5); Mean Corpuscular Hemoglobin 26.2 pg (27.0-33.0); Mean Corpuscular Volume 84.3 fl (81.6-98.3); Mean Platelet Volume 10.7 fl (7.4-10.4); Platelet Count 256 10x3/uL (150-450); RBC Distribution Width 15.3 % (11.5-14.5); Red Blood Cell (RBC) Count 5.43 10x6/uL (3.90-5.03); White Blood Cell (WBC) Count 8.8 10x3/uL (3.5-10.5)
[2022-11-20 16:07] LABS: INR-International Normal Ratio 0.9; PTT 27.6 sec (22.0-33.0); Prothrombin Time 10.2 sec (9.5-12.1)
[2022-11-20 16:08] LABS: Anion Gap 15 mmol/L (10-20); BUN (Urea Nitrogen) 34 mg/dL (9.8-20.1); Calc. Creatinine Clearance 0 mL/min (70-130); Calcium 9.5 mg/dL (7.8-10.44); Carbon Dioxide 22 mmol/L (23-31); Chloride 110 mmol/L (98-107); Estimated GFR 66; Glucose 75 mg/dL (80-115); Potassium 4.3 mmol/L (3.5-5.1); Sodium 143 mmol/L (136-145)
== END 2022-11-20 14:37 | disposition home or self-care (01) ==
LOC: LABBT 14:36
PROVIDERS: ATTEND Neurological Surgery
DX: Z01.812 Encounter for preprocedural laboratory examination (principal); M48.061 Spinal stenosis, lumbar region without neurogenic claudication; M43.16 Spondylolisthesis, lumbar region
CPT/HCPCS: 80048; 85027; 85610; 85730

== ENCOUNTER 2022-11-24 05:29 | Inpatient (IN) | payer OTHER ==
[2022-11-24] MEDS ORDERED: Dexmedetomidine 200 MCG/2 ML VIAL ONE (06:13)
[2022-11-24] MEDS ORDERED: Fentanyl 250 MCG/5 ML VIAL ONE (06:13)
[2022-11-24] MEDS ORDERED: Neomycin-Polymyxin 1 ML AMP ONE (06:15)
[2022-11-24] MEDS ORDERED: Thrombin 5000 UNITS/5 ML VIAL ONE (06:15)
[2022-11-24] MEDS ORDERED: Vancomycin 1 GM VIAL ONE (06:15)
[2022-11-24] MEDS ORDERED: Bupivacaine HCl 0.5%/Epinephrine 1:200,000/PF 30 ml Vial ONE (06:15)
[2022-11-24] MEDS ORDERED: HYDROcodone/Acetaminophen 7.5/325 mg Tablet PO PRN (06:35)
[2022-11-24] MEDS ORDERED: Morphine 2 MG/ML VIAL SLOW IVP PRN (06:35)
[2022-11-24] MEDS ORDERED: Prochlorperazine 10 MG/2 ML VIAL IM PRN (06:35)
[2022-11-24] MEDS ORDERED: Milk Of Magnesia 30 ML UDCUP PO PRN (06:35)
[2022-11-24] MEDS ORDERED: Ondansetron PF 4 MG/2 ML Vial IVP PRN (06:35)
[2022-11-24] MEDS ORDERED: Mag-Al 1200 mg/1200 mg/30 ML UDCUP PO PRN (06:35)
[2022-11-24] MEDS ORDERED: Acetaminophen 325 MG TAB PO PRN (06:35)
[2022-11-24] MEDS ORDERED: Topiramate 25 MG TAB PO PRN (06:43)
[2022-11-24] MEDS ORDERED: CEFAZOLIN 2 GM VIAL ONE (06:49)
[2022-11-24] MEDS ORDERED: Sodium Chloride 0.9% 100 ML ONE (06:49)
[2022-11-24] MEDS ORDERED: NEOSTIGMINE 3 MG/3 ML SYR 3 MG/3 ML SYRINGE ONE (07:05)
[2022-11-24] MEDS ORDERED: Dexamethasone 20 MG/5 ML VIAL ONE (07:05)
[2022-11-24] MEDS ORDERED: Vecuronium 10 MG VIAL ONE (07:05)
[2022-11-24] MEDS ORDERED: Rocuronium Bromide 10 MG/ML (10ML VIAL) ONE (07:05)
[2022-11-24] MEDS ORDERED: Ondansetron PF 4 MG/2 ML Vial ONE (07:05)
[2022-11-24] MEDS ORDERED: GLYCOPYRROLATE/PF 0.2 MG/ML VIAL ONE (07:05)
[2022-11-24] MEDS ORDERED: PROPOFOL 200 MG/20 ML VIAL ONE (07:05)
[2022-11-24] MEDS ORDERED: Phenylephrine 10 MG/ML VIAL ONE (07:05)
[2022-11-24] MEDS ORDERED: Lidocaine 1% PF 5 ML VIAL ONE (07:05)
[2022-11-24] MEDS ORDERED: PACU-Morphine 4MG/ML VIAL SLOW IVP PRN (11:35)
[2022-11-24] MEDS ORDERED: Morphine Sulfate 2 MG/ML SYRINGE SLOW IVP PRN (11:35)
[2022-11-24] MEDS ORDERED: Ondansetron HCl/PF 4 MG/2 ML Vial IVP PRN (11:35)
[2022-11-24] MEDS ORDERED: HYDROmorphone 2 MG/ML VIAL SLOW IVP PRN (11:35)
[2022-11-24] MEDS ORDERED: Promethazine HCl 25 MG/ML VIAL IM PRN (11:35)
[2022-11-24] MEDS ORDERED: HYDROmorphone 2 MG/ML VIAL ONE (11:52)
[2022-11-24] MEDS ORDERED: fentaNYL PF 100 MCG/2 ML SYRINGE ONE (12:02)
[2022-11-24] MEDS: Sertraline 100 MG TAB PO SCH (13:17)
[2022-11-24] MEDS: Sodium Chloride 0.9% 1,000 ML IV SCH ×2 (16:10→22:51)
[2022-11-24] MEDS: CEFAZOLIN 2 GM in Sodium Chloride 0.9% 100 ML IVPB SCH ×2 (16:10→23:21)
[2022-11-24 17:46] VITALS: BMI 30.3
[2022-11-24] MEDS: Gabapentin 300 MG CAP PO SCH (20:48)
[2022-11-24] MEDS: Atorvastatin Calcium 10 MG TAB PO SCH (20:48)
[2022-11-24] MEDS: Acetaminophen/Codeine 30-300mg Tablet PO PRN (23:20)
[2022-11-25] MEDS: tiZANidine HCl 4 MG TAB PO PRN ×3 (00:08→19:32)
[2022-11-25] MEDS: Sertraline 100 MG TAB PO SCH (07:40)
[2022-11-25] MEDS: Acetaminophen/Codeine 30-300mg Tablet PO PRN ×2 (07:41→11:47)
[2022-11-25] MEDS: Sodium Chloride 0.9% 1,000 ML IV SCH ×2 (10:35→22:40)
[2022-11-25 14:00] LABS: #Lymphocytes 1.2 thou/uL (1.20-3.40); #Monocytes 1.5 thou/uL (0.11-0.59); #Neutrophils 10.9 thou/uL (1.40-6.50); %Eosinophils 0.1 % (0.0-10.0); %Lymphocytes 9.1 % (21.0-51.0); %Monocytes 10.7 % (0.0-10.0); Hemoglobin 12.8 g/dL (12.0-16.0); Mean Corpuscular HGB CONC 34.7 g/dL (32.0-36.0); Mean Corpuscular Hemoglobin 29.6 pg (27.0-31.0); Mean Corpuscular Volume 85.4 fl (78.0-98.0); Mean Platelet Volume 9.1 fL (7.4-10.4); Platelet Count 163 10x3/uL (130-400); RBC Distribution Width 14.2 % (11.5-14.5); Red Blood Cell (RBC) Count 4.34 mill/uL (4.20-5.40); White Blood Cell (WBC) Count 13.6 10x3/uL (4.8-10.8)
[2022-11-25 14:26] LABS: Anion Gap 12 mmol/L (10-20); BUN (Urea Nitrogen) 21 mg/dL (9.8-20.1); Calc. Creatinine Clearance 83 mL/min (70-130); Calcium 8.5 mg/dL (7.8-10.44); Carbon Dioxide 22 mmol/L (23-31); Chloride 108 mmol/L (98-107); Estimated GFR 74; Glucose 135 mg/dL (80-115); Potassium 3.2 mmol/L (3.5-5.1); Sodium 139 mmol/L (136-145)
[2022-11-25] MEDS: Gabapentin 300 MG CAP PO SCH (19:32)
[2022-11-25] MEDS: Atorvastatin Calcium 10 MG TAB PO SCH (19:32)
[2022-11-26] MEDS: HYDROcodone/Acetaminophen 10/325 mg Tablet PO PRN ×2 (08:30→14:48)
[2022-11-26] MEDS: Sertraline 100 MG TAB PO SCH (08:30)
[2022-11-26 13:55] VITALS: BP 109/50; TEMP 98.4
[2022-11-26] MEDS: Sodium Chloride 0.9% 1,000 ML IV SCH (14:37)
== END 2022-11-26 15:29 | disposition home or self-care (01) | DRG 455 ==
LOC: SDC 05:29 → SURG A 13:18 → OBSVTOIN 11-26 11:33
PROVIDERS: ADMIT Neurological Surgery; ATTEND Neurological Surgery
PROC: 0SG00AJ Fusion of Lumbar Vertebral Joint with Interbody Fusion Device, Posterior Approach, Anterior Column, Open Approach (ICD-10-PCS; principal; 2022-11-24)
PROC: 0SG0071 Fusion of Lumbar Vertebral Joint with Autologous Tissue Substitute, Posterior Approach, Posterior Column, Open Approach (ICD-10-PCS; 2022-11-24)
PROC: 01NB0ZZ Release Lumbar Nerve, Open Approach (ICD-10-PCS; 2022-11-24)
PROC: 00NY0ZZ Release Lumbar Spinal Cord, Open Approach (ICD-10-PCS; 2022-11-24)
DX: M48.062 Spinal stenosis, lumbar region with neurogenic claudication (principal); M43.16 Spondylolisthesis, lumbar region; E78.00 Pure hypercholesterolemia, unspecified; M19.90 Unspecified osteoarthritis, unspecified site; G89.29 Other chronic pain; F32.A Depression, unspecified; G43.909 Migraine, unspecified, not intractable, without status migrainosus; Z90.710 Acquired absence of both cervix and uterus; Z90.49 Acquired absence of other specified parts of digestive tract; Z79.899 Other long term (current) drug therapy
CPT/HCPCS: 36415; 80048; 85025; C1713; C1768; C1776; C1889; J1100; J1170; J2370; J2405; J2704; J3010; J3370; J3490; J7050

== ENCOUNTER 2023-01-26 13:03 | Outpatient (CLI) | payer OTHER, MEDICARE | END 2023-01-26 13:04 | disposition home or self-care (01) | LOC: RAD 13:03 | PROVIDERS: ATTEND Neurological Surgery | DX: M48.062 Spinal stenosis, lumbar region with neurogenic claudication (principal); M47.816 Spondylosis without myelopathy or radiculopathy, lumbar region; Z98.890 Other specified postprocedural states | CPT/HCPCS: 72100 ==